=== PATIENT | male | born 1980 | race Caucasian/White ===

== ENCOUNTER 2019-04-20 08:00 | Outpatient (CLI) | payer BC ==
[2019-04-20 12:16] LABS: BASOPHILS % (AUTO) 0.3 %; EOSINOPHILS % (AUTO) 0.5 %; HGB - HEMOGLOBIN 14.3 g/dL (14.0-18.0); LYMPHOCYTES # (AUTO) 2.4 10^3/uL (1.5-3.5); LYMPHOCYTES % (AUTO) 41.5 %; MEAN CORPUSCULAR HEMOGLOBIN 26.8 pg (27.0-31.0); MEAN CORPUSCULAR HGB CONC 33.2 g/dL (32.0-36.0); MEAN CORPUSCULAR VOLUME 80.9 fL (80.0-94.0); MEAN PLATELET VOLUME 10.2 fL (7.4-11.4); MONOCYTES # (AUTO) 0.4 10^3/uL (0.0-1.0); MONOCYTES % (AUTO) 6.3 %; NEUTROPHILS # (AUTO) 2.9 10^3/uL (1.5-6.6); NEUTROPHILS % (AUTO) 50.7 %; PLT - PLATELET COUNT 175 10^3/uL (130-450); RED BLOOD COUNT 5.33 10^6/uL (4.70-6.10); RED CELL DISTRIBUTION WIDTH 13.6 % (12.0-15.0); WHITE BLOOD COUNT 5.7 x10^3/uL (4.8-10.8)
[2019-04-20 13:03] LABS: ALBUMIN 4.1 g/dL (3.2-5.5); ALBUMIN/GLOBULIN RATIO 1.3 (1.0-2.2); ALKALINE PHOSPHATASE 50 IU/L (42-121); ALT ALANINE AMINOTRANSFERASE 60 IU/L (10-60); AST ASPARTATE AMINOTRANSFERASE 37 IU/L (10-42); BILIRUBIN,TOTAL 0.8 mg/dL (0.2-1.0); BUN - BLOOD UREA NITROGEN 18 mg/dL (6-20); CALCIUM 9.2 mg/dL (8.5-10.3); CARBON DIOXIDE - CO2 24 mmol/L (21-32); CHLORIDE 108 mmol/L (101-111); CHOL/HDL RATIO 4.6 (<5.0); CHOLESTEROL 234 mg/dL; CREATININE 0.9 mg/dL (0.6-1.2); GFR - MDRD 94 (>89); GLUCOSE 111 mg/dL (70-100); HDL CHOLESTEROL 51 mg/dL; LDL CHOLESTEROL,CALCULATED 161 mg/dL; LDL/HDL RATIO 3.2 (<3.6); SODIUM 141 mmol/L (135-145); TOTAL PROTEIN 7.3 g/dL (6.7-8.2); VLDL CHOLESTEROL 22 mg/dL
== END 2019-04-20 23:59 | disposition home or self-care (01) ==
LOC: LAB.WCP 08:00
PROVIDERS: ATTEND Physician Assistant Medical
DX: I10 Essential (primary) hypertension (principal); Z00.00 Encounter for general adult medical examination without abnormal findings
CPT/HCPCS: 36415; 80053; 80061; 83721; 84443; 85025

== ENCOUNTER 2019-07-23 07:52 | Outpatient (CLI) | payer BC ==
[2019-07-23 12:45] LABS: BUN - BLOOD UREA NITROGEN 23 mg/dL (6-20); CALCIUM 9.3 mg/dL (8.5-10.3); CARBON DIOXIDE - CO2 27 mmol/L (21-32); CHLORIDE 103 mmol/L (101-111); CHOL/HDL RATIO 4.3 (<5.0); CHOLESTEROL 176 mg/dL; CREATININE 0.8 mg/dL (0.6-1.2); GFR - MDRD 108 (>89); GLUCOSE 107 mg/dL (70-100); HDL CHOLESTEROL 41 mg/dL; LDL CHOLESTEROL,CALCULATED 120 mg/dL; LDL/HDL RATIO 2.9 (<3.6); SODIUM 139 mmol/L (135-145); VLDL CHOLESTEROL 15 mg/dL
== END 2019-07-23 23:59 | disposition home or self-care (01) ==
LOC: LAB.WCP 07:52
PROVIDERS: ATTEND Physician Assistant Medical
DX: E78.5 Hyperlipidemia, unspecified (principal)
CPT/HCPCS: 36415; 80048; 80061; 83721

== ENCOUNTER 2019-08-13 11:17 | Outpatient (CLI) | payer BC | END 2019-08-13 11:18 | disposition home or self-care (01) | LOC: DI 11:17 | PROVIDERS: ATTEND Family Medicine | DX: Z53.9 Procedure and treatment not carried out, unspecified reason (principal) ==

== ENCOUNTER 2023-08-22 08:18 | Outpatient (CLI) | payer OTHER ==
--- NOTE | 2023-08-22 08:56 | Sleep Patient Instructions ---
Sleep Center Visit Summary - Patient Visit Information Reason for Visit: Initial consult for evaluation of sleep disordered breathing and other sleep issues. - Patient Instructions Instructions Attached: Sleep Study, Sleep Study Home Monitor Additional Instructions: You will be completing a sleep study, either an in-lab polysomnography (PSG) or home sleep study (HST). You will follow-up in the sleep care office after the sleep study is completed to hear the results and talk about therapy, if needed. You will be called by our office staff to schedule this appointment, but you may contact us with any questions. - Clinic Information Contact: [facility] [address] [place] [id number] [email or web address] T: [phone]
--- NOTE | 2023-08-22 09:02 | SLEEP CARE CONSULTATION ---
Information from patient questionnaire entered by Smith Mcgraw. I have reviewed and concur with the information entered by Smith Mcgraw. This document represents the service I personally performed and the decisions made by me, Monisha Villalobos ARNP. History of Present Illness Service Date and Time: 08/22/2023817 Reason for Visit: New patient Chief Complaint: reports: Snoring, Excessive daytime sleepiness, Observed pauses in breathing, Frequent awakenings at night Date of Onset: 4-5 years Usual bedtime: 9:30 PM Time it takes to fall asleep: 10-15 minutes Snores at night: Yes Observed to quit breathing while asleep: Yes Sleeps alone due to snoring: Yes Number of times waking at night: 3-4 times Reasons for waking at night: reports: Choking, Snoring, Gasping for air, Other (Unknown reason) Toss, Turn, or Twitch while sleeping: Yes Recalls having dreams: Yes Usually gets out of bed at: 4:30 AM; weekends 06-0700 Feels refreshed in the morning: No Morning headache: No Sleepy or fatigued during the day: Yes Ever fallen asleep while driving: Yes (drowsy driving; no accidents) Takes day naps: Yes (rarely during week, 1 time otherwise) Dreams during day naps: No Prior sleep studies: No Additional HPI information: I had the pleasure of seeing LYNNE OROZCO today regarding the possibility of him having a sleep disorder. His current complaints are excessive daytime sleepiness, frequent night awakenings, observed pauses in breathing and snoring. He says his snoring has gotten progressively worse over several years (8-10 years). He occasionally will sleep on couch to give his break from his snoring. His is telling him that he is now having pauses of breathing when sleeping. He is also noticing more recently that he is starting to wake up feeling out of breath and his heart is racing. He has high blood pressure. He is waking up gasping and about 4 times at night. He is rolling over about 3-6 times a night. He does not wake up feeling rested in the mornings. He is finding that he is dozing off at his computer at work in the afternoons. 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 Patient is and lives in [place]. Have you smoked in the past 12 months: No Alcohol use: Yes Alcohol amount and frequency: 2 beers every day Caffeine use: Yes Caffeine amount and frequency: 4 cups of coffee every day Family History Family history of sleep disordered breathing: Yes Family Hx Sleep Apnea: Father: Snoring, Sleep apnea - Untreated Allergies and Home Medications Known drug allergies: No Drug allergies reviewed: Yes Home medication list reviewed: Yes Allergy and home medication list: Medications: HCTZ Losartan Fluoxetine ?beta-marycruz to control heart rate Review of Systems Weight gain over past 5 years: 40 Cardiovascular: reports: high blood pressure, leg or foot swelling Respiratory: reports: chronic cough Gastrointestinal: reports: heartburn Neurological: denies: headaches Psychiatric: reports: anxiety, depression Ear/Nose/Throat: reports: nasal congestion, wisdom teeth removed. denies: tonsillectomy Endocrine: reports: sluggishness (/tired) Physical Exam Vital signs obtained and entered by: Monisha Avila NP Blood Pressure: 163/92 Cuff size: wrist (left) Heart Rate: 65 O2 Saturation: 97 Height: 5 ft 9 in Weight: 305 lb 9.6 oz Body Mass Index: 45.1 BMI Classification: Morbidly Obese Neck circumference: 19.75 (inches) Mouth and throat: narrow oropharynx Soft palate: normal Hard palate: normal Uvula: long Uvula visualization: 100% Mallampati Class I Tongue: enlarged in size with teeth linn on lateral edges Tonsils: 1+ Neck: normal w/o lymphadenopathy or thyromegaly Heart: regular rate and rhythm Lungs: clear bilaterally Impression and Plan 1. Suspected Obstructive Sleep Apnea-Hypopnea Syndrome, as suggested by a history of loud and irregular snoring, observed cessation of breath while asleep, gasping or choking in sleep, frequent awakening during the night, unrefreshed sleep, cognitive impairment, and excessive daytime sleepiness. Narrow oropharynx and obesity are common predisposing factors for obstructive sleep apnea-hypopnea syndrome. I recommend proceeding to polysomnography to confirm the diagnosis and to assess severity. If the patient has significant sleep disordered breathing, a manual CPAP titration study will also be performed to find the optimal treatment pressure. I informed the patient of what the sleep studies involve and after some discussion, obtained agreement to proceed. The pathophysiology of obstructive sleep apnea-hypopnea syndrome was discussed with the patient and health risks of cardiovascular and cerebrovascular disease if not treated. 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 Patient agreed to plan. * Schedule polysomnography. * Avoid long distance driving or driving when feeling sleepy. * Avoid alcohol, sedative and muscle relaxant around bedtime. * Attempt to lose weight. * Review instructions provided by trained office staff on how to prepare for the sleep study. * Return for follow-up after sleep study completed. Counseling Topics: Weight loss health impact Plan: PSG Visit Type: In Office Time Spent with Patient (minutes): 32 Provider Statement: I spent 100% of the Face to Face Visit with the patient with greater than 50% spent counseling the patient and coordination of care.
[2023-08-22 09:05] VITALS: BP 163/92; O2SAT 97
== END 2023-08-22 08:19 | disposition home or self-care (01) ==
LOC: SC 08:18
PROVIDERS: ATTEND Nurse Practitioner Family
DX: G47.10 Hypersomnia, unspecified (principal); G47.8 Other sleep disorders; R51.9 Headache, unspecified; R06.83 Snoring; R06.81 Apnea, not elsewhere classified; I10 Essential (primary) hypertension; F32.A Depression, unspecified; E66.01 Morbid (severe) obesity due to excess calories; Z68.42 Body mass index [BMI] 45.0-49.9, adult
CPT/HCPCS: 99203; 99212

== ENCOUNTER 2023-09-02 14:41 | Outpatient (CLI) | payer OTHER | END 2023-09-02 14:42 | disposition home or self-care (01) | LOC: SC 14:41 | PROVIDERS: ATTEND Nurse Practitioner Family | DX: G47.33 Obstructive sleep apnea (adult) (pediatric) (principal); R09.02 Hypoxemia; I10 Essential (primary) hypertension; F32.A Depression, unspecified; E66.01 Morbid (severe) obesity due to excess calories; Z68.42 Body mass index [BMI] 45.0-49.9, adult | CPT/HCPCS: 95806 ==

== ENCOUNTER 2023-09-19 09:44 | Outpatient (CLI) | payer OTHER ==
--- NOTE | 2023-09-19 10:09 | Sleep Patient Instructions ---
Sleep Center Visit Summary - Patient Visit Information Reason for Visit: Sleep study follow up - Patient Instructions Instructions Attached: CPAP Additional Instructions: You are being started on CPAP therapy with pressure setting at 5-20 cmH2O. You will need to call the sleep care office to set up your follow up once you have your APAP machine and we will schedule a visit to check compliance and response to therapy at that time. You may call the office with any concerns about pressure feeling too low or too much for adjustment, if needed. You should contact DME supplier for any questions or concerns about mask or equipment. Please call office to schedule a follow up appointment in the sleep care office one month after obtaining new device. - Clinic Information Contact: [facility] [address] [place] [address] [email or web address] T: [phone]
--- NOTE | 2023-09-19 10:12 | SLEEP CARE CONSULTATION ---
Information from patient questionnaire entered by Zoë Mora. I have reviewed and concur with the information entered by Zoë Mora. This document represents the service I personally performed and the decisions made by , Monisha Villalobos ARNP. History of Present Illness Service Date and Time: 09/19/2023 0944 Initial [place] Sleepiness Scale score: 19 (in 2022) Current [place] Sleepiness Scale score: 18 (09/19/23) Additional HPI information: LYNNE OROZCO returns for follow up and results of the recently performed home sleep study. The sleep study showed very severe obstructive sleep apnea with an average AHI of 85.1 and maggie oxygen saturation of 64%. I explained the pathophysiology behind obstructive sleep apnea. We then spent quite a bit of time discussing different treatment options. For mild obstructive sleep apnea, surgery and oral appliance are alternatives to nasal CPAP therapy but in moderate or severe cases, nasal CPAP is the most effective and reliable treatment. I reviewed the impact of weight changes on sleep apnea and strongly recommended losing weight. After some discussion, the patient opted to go with the nasal CPAP therapy. Nasal autoCPAP set at 5-20 will be ordered with rationale explained. A manual titration study will be ordered if unable to find optimal pressure with office adjustments. I explained how CPAP machine works and what to expect when using the machine. Using CPAP every night in order to get used to it was emphasized. Patient advised to put CPAP mask on before getting into bed so as not to fall asleep without CPAP. To assist acclimation to CPAP use, it could also be used for a short time during day while reading or watching TV. The patient was instructed to call the CPAP supplier to discuss any mechanical problem that may occur. If the mask given is uncomfortable or is difficult to keep on through the night even with adjustment, contact the CPAP supplier as many will replace with another mask style if notified before 30 days. If snoring or perceives is not getting enough air or too much air from the machine, notify this office. Patient counseled not drink alcohol less than 4 hours before bedtime as it can increase snoring and apnea. Patient was cautioned about risks of drowsy driving until sleepiness symptoms resolve. Sleep Study - Results Type of Sleep Study: Home sleep study (COMPLETED 09/02/23) Prior sleep studies: No Polysomnography/Home Sleep Study results: Physician Impression: The quality of the study is good. The length of the study is adequate (> 240 minutes). Please also see the tabulated and graphic data. 1. Obstructive Sleep Apnea-Hypopnea (ICD-10 G47.33), very severe, with an AHI of 85.1/hr and maggie SaO2 of 64%. During the study, the patient had 675 apneas (675 obstructive, 0 central, 0 mixed) and 33 hypopneas. The longest episode lasted 57.0 seconds. The respiratory events occurred more frequently during supine sleep (supine AHI was 85.4 and non-supine, 37.50). 2. Hypoxemia (ICD-10 R09.02), moderate, with the lowest oxygen saturation of 64 % and 239.6 minutes with SaO2 under 90%. Baseline oxygen saturation was low (Average oxygen saturation was 89%). Allergies and Home Medications Known drug allergies: No Drug allergies reviewed: Yes Home medication list reviewed: Yes (no changes) Review of Systems Review of systems same as previous: Yes (NO CHANGE) Physical Exam Vital signs obtained and entered by: ZOË Jeong MA Blood Pressure: 93/73 (RIGHT) Cuff size: wrist Heart Rate: 87 O2 Saturation: 96 Height: 5 ft 9 in Weight: 322 lb Body Mass Index: 47.5 BMI Classification: Morbidly Obese Impression and Plan 1. Obstructive Sleep Apnea-Hypopnea Syndrome, very severe, with lowest oxygen saturation of 64%. Obviously this is the cause of the patients symptoms of unrefreshed sleep, and excessive daytime sleepiness. Positive pressure therapy could benefit hypertension and depression. As mentioned above, the patient will be started on nasal autoCPAP therapy with pressure set at 5-20 cmH2O. A manual titration study will be completed if unable to find optimal treatment pressure with office adjustments. Compliance guidelines also reviewed. A copy of compliance guidelines will be given for reference at check out. Because the apnea is more severe supine, I instructed to avoid sleeping supine using pillow positioning until able to start CPAP use. 2. Hypoxemia, moderate, with a maggie oxygen saturation of 64% and 239.6 minutes spent under 90%. The baseline oxygen saturation was normal with an average oxygen saturation of 89%. 2. Obesity, unspecified. Currently patients BMI is 47.5. Obesity increases the risk of apnea, CPAP pressure requirements and overall health risks especially cardiovascular and diabetes. Thus patient is advised to lose weight. * Nasal auto CPAP therapy, pressure at 5-20 cm H2O. * Attempt to lose weight. * Avoid alcohol consumption near bedtime. * Avoid supine sleep until using CPAP. * The patient is again cautioned about driving until sleepiness completely resolves. * Return one month after CPAP obtained. I will assess response to therapy and compliance at that time. Counseling Topics: Sleeping position, Weight loss health impact Prescriptions: Auto CPAP Plan: Compliance followup Visit Type: In Office Time Spent with Patient (minutes): 21 Provider Statement: I spent 100% of the Face to Face Visit with the patient with greater than 50% spent counseling the patient and coordination of care.
[2023-09-19 10:14] VITALS: BP 93/73; O2SAT 96
== END 2023-09-19 09:45 | disposition home or self-care (01) ==
LOC: SC 09:44
PROVIDERS: ATTEND Nurse Practitioner Family
DX: G47.33 Obstructive sleep apnea (adult) (pediatric) (principal); R09.02 Hypoxemia; E66.01 Morbid (severe) obesity due to excess calories; Z68.42 Body mass index [BMI] 45.0-49.9, adult
CPT/HCPCS: 99212; 99213

== ENCOUNTER 2023-09-30 09:49 | Outpatient (CLI) | payer OTHER | END 2023-09-30 09:50 | disposition home or self-care (01) | LOC: LAB.N 09:49 | PROVIDERS: ATTEND Physician Assistant Medical | DX: M10.9 Gout, unspecified (principal) | CPT/HCPCS: 36415; 84550 ==

== ENCOUNTER 2023-12-02 14:21 | Outpatient (CLI) | payer OTHER ==
--- NOTE | 2023-12-02 14:57 | Sleep Patient Instructions ---
Sleep Center Visit Summary - Patient Visit Information Reason for Visit: First Compliance Followup with PAP device - Patient Instructions Additional Instructions: You were here for follow up of CPAP therapy. You will be continued on CPAP therapy with pressure at 17-20 cmH2O. Please let us know if the pressure change is uncomfortable and we can make further adjustments of the pressure. You should follow up with sleep care in 1-2 months. You may contact us sooner for any questions or concerns. - Clinic Information Contact: [facility] [address] [place] [address] [email or web address] T: [phone]
--- NOTE | 2023-12-02 15:01 | SLEEP CARE CONSULTATION ---
Information from patient questionnaire entered by Anand Mora. I have reviewed and concur with the information entered by Anand Mora. This document represents the service I personally performed and the decisions made by , Monisha Villalobos ARNP. History of Present Illness Service Date and Time: 12/02/2023 1421 Previous diagnosis: Very Severe, Obstructive Sleep Apnea-Hypopnea Syndrome AHI: 85.1 Reason for follow up: first compliance Equipment type: CPAP (RESMED Airsense 11, s/u 09/26/23; NEED MACHINE) Equipment obtained from: [employer] (getting supplies) Mask style: Full face Mask brand: Resmed (AirFit F20, large cushion) Backup mask available: No (will keep old mask when replaced) Last cushion change: no change yet Prior sleep studies: No Type of Sleep Study: Home sleep study (COMPLETED 09/02/23) HPI additional information: LYNNE OROZCO was diagnosed to have very severe, AHI 85.1, obstructive sleep apnea-hypopnea syndrome and returned today for CPAP therapy first compliance follow-up. Sleep Study - Results Type of Sleep Study: Home sleep study (COMPLETED 09/02/23) Prior sleep studies: No CPAP Compliance Data - Data Reviewed with Patient Average duration of nightly device use: 4 hours 45 minutes Compliance rate %: 27 (10/11 days used) Current pressure setting (cmH2O): 5-20 (median 13.3, avg 16.8, max 17.6) Average residual AHI: 8.6 Central apnea: 0.2 Obstructive apnea: 4.1 Hypopnea: 4.1 Average large leak: 11.7 L/min Subjective Missed days of use due to: reports: illness, travel Patient concerns: reports: mask discomfort, air blowing in eyes (just needs adjustment), dry mouth, nose, throat (when mouth comes open when nose congested due to allergies/illness). denies: aerophagia, mask leak noise, condensation in mask/hose, nasal congestion, epistaxis Observed to snore while using device: No Current pressure setting perceived as: comfortable On therapy, patient: reports: sleeping better, awakening more refreshed, being more awake and alert during the day, more rested overall. denies: drowsiness while driving Initial [place] Sleepiness Scale score: 19 (in 2022) Current [place] Sleepiness Scale score: 9 (12/02/23) Allergies and Home Medications Known drug allergies: No Drug allergies reviewed: Yes Home medication list reviewed: Yes (Allopurinol) Review of Systems Review of systems same as previous: Yes (NO CHANGE) Physical Exam Vital signs obtained and entered by: ANAND Jeong MA Blood Pressure: 136/82 (LEFT ARM) Cuff size: regular Heart Rate: 73 O2 Saturation: 97 Height: 5 ft 9 in Weight: 321 lb 6.4 oz Body Mass Index: 47.5 BMI Classification: Morbidly Obese Impression and Plan 1. Obstructive Sleep Apnea-Hypopnea Syndrome, very severe, with fair treatment compliance and fair apnea control with elevated residual AHI. On CPAP therapy, the patient has better sleep quality and is more rested overall. He has significant improvement of his sleep apnea but current pressure is sub-optimal for apnea control. I discussed with patient that I will adjust his pressure today and follow up with him in 1-2 months. If his AHI is still elevated I plan to order a titration study to find optimal pressure setting. The patients pressure will be changed to autoCPAP 17-20 cmH20 to reflect pressure being used. Patient advised to contact me if pressure change is uncomfortable so that it can be adjusted. Goals for apnea control discussed. After some discussion, he is to try to use his CPAP more often to bring up his compliance. He voiced agreement. Patient's apnea severity and rationale for treatment to reduce apnea, improve sleep quality and reduce cardiovascular and cerebrovascular events was reviewed. I also reviewed the benefit of consistent device use of CPAP for hypertension and depression. 2. Obesity, unspecified. Currently patients BMI is 47.5. Obesity increases the risk of apnea, CPAP pressure requirements and overall health risks especially cardiovascular and diabetes. Thus patient is advised to lose weight. * Change auto CPAP pressure to 17-20 cmH2O * Notify me if snoring with mask or feeling that the pressure is too much or too little * Attempt to lose weight * Call this office if any problems using CPAP * Return for follow up in 1-2 months, or sooner if concerns arise Adjust device pressure to (cmH2O): 17-20 Counseling Topics: Spare mask, Weight loss health impact Follow up with Sleep Care in: 1-2 months Visit Type: In Office Time Spent with Patient (minutes): 26 Provider Statement: I spent 100% of the Face to Face Visit with the patient with greater than 50% spent counseling the patient and coordination of care.
[2023-12-02 15:05] VITALS: BP 136/82; O2SAT 97
== END 2023-12-02 14:22 | disposition home or self-care (01) ==
LOC: SC 14:21
PROVIDERS: ATTEND Nurse Practitioner Family
DX: G47.33 Obstructive sleep apnea (adult) (pediatric) (principal); E66.01 Morbid (severe) obesity due to excess calories; Z68.42 Body mass index [BMI] 45.0-49.9, adult
CPT/HCPCS: 99212; 99213

== ENCOUNTER 2024-01-06 14:59 | Outpatient (CLI) | payer OTHER ==
--- NOTE | 2024-01-06 15:33 | Sleep Patient Instructions ---
Sleep Center Visit Summary - Patient Visit Information Reason for Visit: 1 month follow-up - Patient Instructions Additional Instructions: You were here for follow up of CPAP therapy. You will be continued on CPAP therapy with pressure changed to 17-19 cmH2O. Please let us know if the pressure change is uncomfortable and we can make further adjustments of the pressure. You should follow up with sleep care in 3 months. You may contact us sooner for any questions or concerns. - Clinic Information Contact: [facility] [address] [place] [id number] [email or web address] T: [phone]
--- NOTE | 2024-01-06 15:40 | SLEEP CARE CONSULTATION ---
Information from patient questionnaire entered by Zoë Mora. I have reviewed and concur with the information entered by Zoë Mora. This document represents the service I personally performed and the decisions made by , Monisha Villalobos ARNP. History of Present Illness Service Date and Time: 01/06/2024 1459 Previous diagnosis: Very Severe, Obstructive Sleep Apnea-Hypopnea Syndrome AHI: 85.1 (08/2023) Reason for follow up: one month (F/U) Equipment type: CPAP (RESMED Airsense 11, s/u 09/26/23; NEED MACHINE) Equipment obtained from: [email or web address] ([employer]) Mask style: Full face Mask brand: Resmed (AirFit F20, large) Backup mask available: No (will keep old mask when replaced) Prior sleep studies: No Type of Sleep Study: Home sleep study (COMPLETED 09/02/23) HPI additional information: LYNNE OROZCO was diagnosed to have very severe, AHI 85.1, obstructive sleep apnea-hypopnea syndrome and returned today for CPAP therapy 1 month pressure change follow-up. Sleep Study - Results Type of Sleep Study: Home sleep study (COMPLETED 09/02/23) Prior sleep studies: No CPAP Compliance Data - Data Reviewed with Patient Average duration of nightly device use: 5 HRS 25 MINS Compliance rate %: 87 (11/30/23-12/29/23; days used) Current pressure setting (cmH2O): 17-20 (avg 19) Average residual AHI: 3.5 Central apnea: 0.2 Obstructive apnea: 1.6 Hypopnea: 1.6 Average large leak: 10 L/min Subjective Patient concerns: reports: mask discomfort (on nose, leaves red linn sometimes), air blowing in eyes, mask leak noise (when at higher pressures), dry mouth, nose, throat (not a problem). denies: aerophagia, condensation in mask/hose, nasal congestion, epistaxis Observed to snore while using device: No Current pressure setting perceived as: too high On therapy, patient: reports: sleeping better, awakening more refreshed, being more awake and alert during the day, more rested overall. denies: drowsiness while driving Initial [place] Sleepiness Scale score: 19 (in 2022) Current [place] Sleepiness Scale score: 8 (01/06/24) Allergies and Home Medications Known drug allergies: No Drug allergies reviewed: Yes Home medication list reviewed: Yes (no changes) Review of Systems Review of systems same as previous: Yes (NO CHANGE) Physical Exam Vital signs obtained and entered by: ZOË Jeong MA Blood Pressure: 168/90 (LEFT ARM) Cuff size: long Heart Rate: 69 O2 Saturation: 96 Height: 5 ft 9 in Weight: 326 lb 6.4 oz Body Mass Index: 48.2 BMI Classification: Morbidly Obese Impression and Plan 1. Obstructive Sleep Apnea-Hypopnea Syndrome, very severe, with good treatment compliance and good apnea control. On CPAP therapy, the patient has better sleep quality and is more rested overall. He has significant improvement of his sleep apnea and is now at goal with his residual AHI at 3.5 using an average pressure of 19 cmH2O. Patient feels like sometimes the pressure feels a little high at the highest pressure because his mask will leak more and bother his . His maximum pressure used on the machine was at 19.5 cmH2O. I will limit his pressure to 17-19 cmH2O to help reduce the mask air leaks and for patient comfort. The patients pressure will be changed to autoCPAP 17-19 cmH20. Patient advised to contact me if pressure change is uncomfortable so that it can be adjusted. Goals for apnea control discussed. Patient's apnea severity and rationale for treatment to reduce apnea, improve sleep quality and reduce cardiovascular and cerebrovascular events was reviewed. I also reviewed the cristina efit of consistent device use of CPAP for hypertension, depression. 2. Obesity, unspecified. Currently patients BMI is 48.2. Obesity increases the risk of apnea, CPAP pressure requirements and overall health risks especially cardiovascular and diabetes. Thus patient is advised to lose weight. * Change auto CPAP pressure to 17-19 cmH2O * Notify me if snoring with mask or feeling that the pressure is too much or too little * Attempt to lose weight * Call this office if any problems using CPAP * Return for follow up in 3 months, or sooner if concerns arise Adjust device pressure to (cmH2O): 17-19 Counseling Topics: Spare mask, Weight loss health impact Follow up with Sleep Care in: 3 months Visit Type: In Office Time Spent with Patient (minutes): 21 Provider Statement: I spent 100% of the Face to Face Visit with the patient with greater than 50% spent counseling the patient and coordination of care.
[2024-01-06 15:44] VITALS: BP 168/90; O2SAT 96
== END 2024-01-06 15:00 | disposition home or self-care (01) ==
LOC: SC 14:59
PROVIDERS: ATTEND Nurse Practitioner Family
DX: G47.33 Obstructive sleep apnea (adult) (pediatric) (principal); E66.01 Morbid (severe) obesity due to excess calories; Z68.42 Body mass index [BMI] 45.0-49.9, adult
CPT/HCPCS: 99212; 99213

== ENCOUNTER 2024-03-30 07:15 | Outpatient (CLI) | payer OTHER ==
--- NOTE | 2024-03-31 09:31 | XRAY Report ---
PROCEDURE: Foot 3+V RT INDICATIONS: PAIN IN RIGHT FOOT TECHNIQUE: 3 views of the foot were acquired. COMPARISON: None. FINDINGS: Bones: No fractures or dislocations. No suspicious bony lesions. Mild degenerative joint disease Soft tissues: No tibiotalar joint effusion. Mild calcification at the Achilles tendon insertion to calcaneus, compatible with enthesopathy. Generalized soft tissue swelling. IMPRESSION: 1. No acute bony abnormality. 2. Mild degenerative joint disease. 3. Mild Achilles enthesopathy. Reviewed by: Chris Mata MD on 03/31/2024 9:30 AM PDT Approved by: Chris Mata MD on 03/31/2024 9:30 AM PDT Station ID: [id number]
== END 2024-03-30 07:30 | disposition home or self-care (01) ==
LOC: DI.N 07:15
PROVIDERS: ATTEND Physician Assistant Medical
DX: M19.071 Primary osteoarthritis, right ankle and foot (principal); M77.8 Other enthesopathies, not elsewhere classified

== ENCOUNTER 2024-05-27 09:05 | Outpatient (CLI) | payer OTHER ==
--- NOTE | 2024-05-27 09:37 | Sleep Patient Instructions ---
Sleep Center Visit Summary - Patient Visit Information Reason for Visit: 5-month follow-up - Patient Instructions Additional Instructions: You were here for follow up of CPAP therapy. You will be continued on CPAP therapy with pressure at 16-18 cmH2O. Please let us know if the pressure change is uncomfortable and we can make further adjustments of the pressure. You should follow up with sleep care in 6 months. You may contact us sooner for any questions or concerns. - Clinic Information Contact: [facility] [address] [place] [id number] [email or web address] T: [phone]
--- NOTE | 2024-05-27 09:42 | SLEEP CARE CONSULTATION ---
Information from patient questionnaire entered by Anand Mora. I have reviewed and concur with the information entered by Anand Mora. This document represents the service I personally performed and the decisions made by , Monisha Villalobos ARNP. History of Present Illness Service Date and Time: 05/27/2024 0905 Previous diagnosis: Very Severe, Obstructive Sleep Apnea-Hypopnea Syndrome AHI: 85.1 (08/2023) Reason for follow up: other (5 MONTH F/U) Equipment type: CPAP (RESMED Airsense 11, s/u 09/26/23; NEED MACHINE) Equipment obtained from: [employer] ([employer]) Mask style: Full face Mask brand: Resmed (F20) Backup mask available: Yes Prior sleep studies: No Type of Sleep Study: Home sleep study (COMPLETED 09/02/23) HPI additional information: LYNNE OROZCO was diagnosed to have very severe, AHI 85.1, obstructive sleep apne a-hypopnea syndrome and returned today for CPAP therapy 5 month after pressure change follow-up. Sleep Study - Results Type of Sleep Study: Home sleep study (COMPLETED 09/02/23) Prior sleep studies: No CPAP Compliance Data - Data Reviewed with Patient Average duration of nightly device use: 5 HRS 13 MINS Compliance rate %: 57 (12/25/23-05/22/24; 102/150 days used) Current pressure setting (cmH2O): 17-19 Average residual AHI: 2.6 Central apnea: 0.2 Obstructive apnea: 0.8 Hypopnea: 1.1 Average large leak: 22.5 L/min Subjective Missed days of use due to: reports: travel (camping trip), other (fall asleep without mask) Patient concerns: reports: air blowing in eyes, mask leak noise, dry mouth, nose, throat (oral venting a little). denies: aerophagia, mask discomfort, condensation in mask/hose, nasal congestion, epistaxis Observed to snore while using device: No Current pressure setting perceived as: too high On therapy, patient: reports: sleeping better, awakening more refreshed, being more awake and alert during the day, more rested overall. denies: drowsiness while driving Initial [place] Sleepiness Scale score: 19 (in 2022) Current [place] Sleepiness Scale score: 6 (05/27/24) Allergies and Home Medications Known drug allergies: No Drug allergies reviewed: Yes Home medication list reviewed: Yes (Allopurinol) Allergy and home medication list: Allergies No Known Drug Allergies Allergy (Verified 05/27/24 09:09) Review of Systems Review of systems same as previous: Yes (NO CHANGE) Physical Exam Vital signs obtained and entered by: ANAND Jeong MA Blood Pressure: 183/96 (LEFT ARM) Cuff size: long Heart Rate: 64 O2 Saturation: 97 Height: 5 ft 9 in Weight: 308 lb Weight change since last visit: 18 lb loss Body Mass Index: 45.4 BMI Classification: Morbidly Obese Impression and Plan 1. Obstructive Sleep Apnea-Hypopnea Syndrome, very severe, with fair treatment compliance and good apnea control. On CPAP therapy, the patient has better sleep quality and is more rested overall. He says the pressure will wake him up between 2:30-3 AM. He gets it leaking and vibrating the mask on his face. 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 Patient advised to contact me if pressure change is uncomfortable so that it can be adjusted. Goals for apnea control discussed.Patient's apnea severity and rationale for treatment to reduce apnea, improve sleep quality and reduce cardiovascular and cerebrovascular events was reviewed. I also reviewed the benefit of consistent device use of CPAP for hypertension, depression. 2. Obesity, unspecified. Currently patients BMI is 45.4. He has lost weight, eating less. Obesity increases the risk of apnea, CPAP pressure requirements and overall health risks especially cardiovascular and diabetes. Thus patient is advised to continue to try to lose weight. 3. Elevated blood pressure reading in patient with hypertension. His initial blood pressure was at 183/96. He states he is working with his PCP on adjustments to his medications for his blood pressure. He has a follow up in a couple weeks for continued evaluation. He denies chest pain, shortness of breath, headaches or dizziness today. * Change auto CPAP pressure to 16-18 cmH2O * Follow up with PCP for elevated blood pressure * Notify me if snoring with mask or feeling that the pressure is too much or too little * Attempt to lose weight * Call this office if any problems using CPAP * Return for follow up in 6 months, or sooner if concerns arise Adjust device pressure to (cmH2O): 16-18 Counseling Topics: Spare mask, Weight loss health impact Follow up with Sleep Care in: 6 months Follow up with: PCP Follow up recommended for: High blood pressure Visit Type: In Office Time Spent with Patient (minutes): 21 Provider Statement: I spent 100% of the Face to Face Visit with the patient with greater than 50% spent counseling the patient and coordination of care.
[2024-05-27 09:48] VITALS: BP 183/96; O2SAT 97
== END 2024-05-27 09:06 | disposition home or self-care (01) ==
LOC: SC 09:05
PROVIDERS: ATTEND Nurse Practitioner Family
DX: G47.33 Obstructive sleep apnea (adult) (pediatric) (principal); E66.01 Morbid (severe) obesity due to excess calories; Z68.42 Body mass index [BMI] 45.0-49.9, adult; I10 Essential (primary) hypertension
CPT/HCPCS: 99212; 99213

== ENCOUNTER 2024-06-14 07:41 | Outpatient (CLI) | payer OTHER ==
[2024-06-14 08:08] LABS: BASOPHILS % (AUTO) 0.2 %; EOSINOPHILS # (AUTO) 0.1 10^3/uL (0.0-0.7); EOSINOPHILS % (AUTO) 1.5 %; HCT - HEMATOCRIT 43.1 % (42.0-52.0); HGB - HEMOGLOBIN 14.2 g/dL (14.0-18.0); LYMPHOCYTES # (AUTO) 2.8 10^3/uL (1.5-3.5); LYMPHOCYTES % (AUTO) 34.2 %; MEAN CORPUSCULAR HGB CONC 32.9 g/dL (32.0-36.0); MEAN CORPUSCULAR VOLUME 78.9 fL (80.0-94.0); MEAN PLATELET VOLUME 9.8 fL (7.4-11.4); MONOCYTES # (AUTO) 0.6 10^3/uL (0.0-1.0); MONOCYTES % (AUTO) 7.3 %; NEUTROPHILS # (AUTO) 4.7 10^3/uL (1.5-6.6); NEUTROPHILS % (AUTO) 56.6 %; PLT - PLATELET COUNT 179 10^3/uL (130-450); RED BLOOD COUNT 5.46 10^6/uL (4.70-6.10); RED CELL DISTRIBUTION WIDTH 13.2 % (12.0-15.0); WHITE BLOOD COUNT 8.2 x10^3/uL (4.8-10.8)
[2024-06-14 08:21] LABS: ALBUMIN 4.2 g/dL (3.2-5.5); ALBUMIN/GLOBULIN RATIO 1.6 (1.0-2.2); ALKALINE PHOSPHATASE 61 IU/L (42-121); ALT ALANINE AMINOTRANSFERASE 42 IU/L (10-60); AST ASPARTATE AMINOTRANSFERASE 22 IU/L (10-42); BILIRUBIN,TOTAL 0.7 mg/dL (0.2-1.0); BUN - BLOOD UREA NITROGEN 18 mg/dL (6-20); CALCIUM 9.3 mg/dL (8.5-10.3); CARBON DIOXIDE - CO2 28 mmol/L (21-32); CHLORIDE 103 mmol/L (101-111); CHOL/HDL RATIO 4.1 (<5.0); CHOLESTEROL 185 mg/dL; CREATININE 0.9 mg/dL (0.6-1.3); GFR - MDRD 92 (>89); GLUCOSE 135 mg/dL (74-104); HDL CHOLESTEROL 45 mg/dL; LDL CHOLESTEROL,CALCULATED 118 mg/dL; LDL/HDL RATIO 2.6 (<3.6); SODIUM 138 mmol/L (135-145); TOTAL PROTEIN 6.9 g/dL (6.4-8.9); TRIGLYCERIDES 110 mg/dL; VLDL CHOLESTEROL 22 mg/dL
[2024-06-14 08:33] LABS: THYROID STIMULATING HORMONE 1.02 uIU/mL (0.34-5.60)
== END 2024-06-14 07:42 | disposition home or self-care (01) ==
LOC: LAB 07:41
PROVIDERS: ATTEND Physician Assistant Medical
DX: Z00.00 Encounter for general adult medical examination without abnormal findings (principal); R53.83 Other fatigue
CPT/HCPCS: 36415; 80053; 80061; 83721; 84403; 84443; 85025